=== PATIENT | female | born 1960 | race Two or more races ===

== ENCOUNTER 2022-01-21 13:04 | Emergency (ER) | payer BC ==
[2022-01-21 14:02] VITALS: BMI 33.5
[2022-01-21] MEDS ORDERED: KETOROLAC TROMETHAMINE 30 MG/1 ML VIAL ONE (14:34)
[2022-01-21] MEDS ORDERED: SODIUM CHLORIDE 1,000 ML IV STA (14:37)
[2022-01-21] MEDS ORDERED: KETOROLAC TROMETHAMINE 60 MG/2 ML VIAL IVPUSH ONE (14:37)
[2022-01-21 15:36] LABS: BASO % 0.8 % (0-2.0); EOS % 0.1 % (0-4.5); MCH 29.2 pg (25.7-33.7); MCHC 33.2 g/dl (32.0-36.0); MEAN CELL VOLUME 87.9 fl (80-96); MEAN PLT VOLUME 9.3 fl (7.5-11.1); MONO % 14.4 % (3.8-10.2); NEUT % 57.7 % (42.8-82.8); PLATELET COUNT 229 10^3/uL (134-434); RBC 4.78 M/mm3 (3.60-5.2); RDW 14.4 % (11.6-15.6); WHITE BLOOD COUNT 5.6 K/mm3 (4.0-10.0)
[2022-01-21 15:43] LABS: INR 1.15 (0.83-1.09); PROTHROMBIN TIME (PATIENT) 13.3 SEC (9.7-13.0)
[2022-01-21 16:00] LABS: BLOOD UREA NITROGEN 14.8 mg/dL (7-18); CALCIUM 9.1 mg/dL (8.5-10.1)
[2022-01-21 16:05] LABS: TOT PROT 7.9 g/dl (6.4-8.2)
[2022-01-21 16:06] LABS: BILIRUBIN,TOTAL 0.4 mg/dL (0.2-1)
[2022-01-21 17:00] VITALS: BP 98/63; PULSE 86; RESP 20; TEMP 98.4
== END 2022-01-21 17:30 | disposition home or self-care (01) ==
LOC: JER 13:04
PROC: 3E0333Z Introduction of Anti-inflammatory into Peripheral Vein, Percutaneous Approach (ICD-10-PCS; principal; 2022-01-21)
PROC: 3E0337Z Introduction of Electrolytic and Water Balance Substance into Peripheral Vein, Percutaneous Approach (ICD-10-PCS; 2022-01-21)
DX: U07.1 COVID-19 (principal)
CPT/HCPCS: 36415; 71046-TC-FY; 80053; 84484; 85025; 85610; 93005; 93010; 99284-25